=== PATIENT | male | born 1945 | race Native Hawaiian/Other Pacific Islander ===

== ENCOUNTER 2016-09-08 12:31 | Outpatient (CLI) | payer OTHER, BC ==
[~2016-09-08 12:31] MED LIST: ASA LO-DOSE81 MG PO
== END 2016-09-08 19:53 | disposition home or self-care (01) ==
LOC: RAD 12:31
DX: M25.571 Pain in right ankle and joints of right foot (principal); M47.896 Other spondylosis, lumbar region

== ENCOUNTER 2018-05-28 09:10 | Outpatient (CLI) | payer OTHER, BC | END 2018-05-28 20:32 | disposition home or self-care (01) | LOC: LABW 09:10 | DX: K74.69 Other cirrhosis of liver (principal) | CPT/HCPCS: 36415; 82105; 82140 ==

== ENCOUNTER 2018-05-31 08:04 | Outpatient (CLI) | payer OTHER, BC | END 2018-05-31 20:27 | disposition home or self-care (01) | LOC: US 08:04 | DX: K74.69 Other cirrhosis of liver (principal) ==

== ENCOUNTER 2018-07-30 07:58 | Outpatient (CLI) | payer OTHER, BC ==
[2018-07-30 08:20] LABS: PLATELET COUNT 132 K/uL (142-355)
== END 2018-07-30 22:46 | disposition home or self-care (01) ==
LOC: LABW 07:58
PROVIDERS: Physician Assistant
DX: K74.69 Other cirrhosis of liver (principal)
CPT/HCPCS: 36415; 80048; 80076; 85027; 85610

== ENCOUNTER 2018-12-03 08:34 | Outpatient (CLI) | payer OTHER, BC | END 2018-12-03 21:35 | disposition home or self-care (01) | LOC: US 08:34 | DX: K74.69 Other cirrhosis of liver (principal) ==

== ENCOUNTER 2019-06-13 07:31 | Outpatient (CLI) | payer OTHER, BC | END 2019-06-13 22:52 | disposition home or self-care (01) | LOC: US 07:31 | DX: K74.69 Other cirrhosis of liver (principal) ==

== ENCOUNTER 2019-12-09 12:12 | Outpatient (CLI) | payer OTHER, BC ==
[2019-12-09 13:05] LABS: PLATELET COUNT 114 K/uL (142-355)
[2019-12-09 14:09] LABS: POTASSIUM 4.3 mmol/L (3.6-5.2)
== END 2019-12-09 18:57 | disposition home or self-care (01) ==
LOC: LABW 12:12
PROVIDERS: Physician Assistant
DX: K74.69 Other cirrhosis of liver (principal); I85.00 Esophageal varices without bleeding
CPT/HCPCS: 36415; 80053; 82977; 85027; 85610

== ENCOUNTER 2020-01-16 07:13 | Outpatient (CLI) | payer OTHER, BC ==
[2020-01-16 07:50] LABS: POTASSIUM 4.1 mmol/L (3.6-5.2)
== END 2020-01-16 19:26 | disposition home or self-care (01) ==
LOC: LAB 07:13
PROVIDERS: Physician Assistant
DX: N28.89 Other specified disorders of kidney and ureter (principal)
CPT/HCPCS: 36415; 80048

== ENCOUNTER 2020-04-16 08:06 | Outpatient (CLI) | payer OTHER, BC | END 2020-04-16 22:23 | disposition home or self-care (01) | LOC: US 08:06 | DX: K74.69 Other cirrhosis of liver (principal); K76.6 Portal hypertension ==

== ENCOUNTER 2020-10-09 08:49 | Outpatient (CLI) | payer OTHER, BC | END 2020-10-09 21:07 | disposition home or self-care (01) | LOC: US 08:49 | PROVIDERS: ATTEND Physician Assistant | DX: K74.69 Other cirrhosis of liver (principal); I85.00 Esophageal varices without bleeding; K76.6 Portal hypertension ==

== ENCOUNTER 2021-07-04 05:34 | Outpatient (CLI) | payer OTHER, BC ==
[2021-07-04 05:51] LABS: PLATELET COUNT 73 K/uL (142-355)
== END 2021-07-04 19:10 | disposition home or self-care (01) ==
LOC: LABW 05:34
PROVIDERS: ATTEND Internal Medicine
DX: D69.6 Thrombocytopenia, unspecified (principal); D75.89 Other specified diseases of blood and blood-forming organs; D72.819 Decreased white blood cell count, unspecified
CPT/HCPCS: 36415; 85027

== ENCOUNTER 2021-10-01 08:42 | Outpatient (CLI) | payer OTHER, BC | END 2021-10-01 18:58 | disposition home or self-care (01) | LOC: US 08:42 | PROVIDERS: ATTEND Internal Medicine | DX: K76.6 Portal hypertension (principal); K74.60 Unspecified cirrhosis of liver; D69.6 Thrombocytopenia, unspecified ==

== ENCOUNTER 2022-06-05 08:09 | Outpatient (CLI) | payer OTHER, BC ==
[2022-06-05 08:43] LABS: POTASSIUM 4.3 mmol/L (3.6-5.2)
== END 2022-06-05 19:16 | disposition home or self-care (01) ==
LOC: LABW 08:09
PROVIDERS: ATTEND Internal Medicine
DX: R79.89 Other specified abnormal findings of blood chemistry (principal)
CPT/HCPCS: 36415; 80048

== ENCOUNTER 2022-06-19 09:03 | Outpatient (CLI) | payer OTHER, BC | END 2022-06-19 21:33 | disposition home or self-care (01) | LOC: US 09:03 | PROVIDERS: ATTEND Internal Medicine | DX: N18.31 Chronic kidney disease, stage 3a (principal) ==

== ENCOUNTER 2022-06-21 11:59 | Outpatient (CLI) | payer OTHER, BC | END 2022-06-21 19:08 | disposition home or self-care (01) | LOC: LABW 11:59 | PROVIDERS: ATTEND Internal Medicine | DX: N18.31 Chronic kidney disease, stage 3a (principal) | CPT/HCPCS: 36415; 80048 ==

== ENCOUNTER 2022-07-13 14:48 | Outpatient (CLI) | payer OTHER, BC | END 2022-07-13 20:36 | disposition home or self-care (01) | LOC: LAB 14:48 | PROVIDERS: ATTEND Internal Medicine | DX: R79.89 Other specified abnormal findings of blood chemistry (principal) | CPT/HCPCS: 84156 ==